=== PATIENT | male | born 1955 | race Caucasian/White ===

== ENCOUNTER 2019-12-26 00:11 | Day surgery (SDC) | payer MEDICARE, SELFPAY ==
[2019-12-06 12:00] VITALS: BP 132/70; PULSE 62; RESP 20; TEMP 36.6; O2SAT 98; BMI 38.2
[2019-12-26] VITALS (13 sets, daily range): BP systolic 127–148; BP diastolic 56–76; PULSE 66–84; RESP 12–21; TEMP 36.4–36.8; O2SAT 93–98
--- NOTE | ~2019-12-26 | XR_ITS ---
EXAMINATION: XR knee LT 2V DATE: 12/26/2019 10:42 INDICATION: Total left knee arthroplasty. Postop. TECHNIQUE: 2 views of left knee were obtained. COMPARISON: None. FINDINGS: There is a total left knee arthroplasty with patellar resurfacing in near-anatomic alignmen t. No fracture. There is gas in the knee joint and soft tissues, consistent with recent surgery. IMPRESSION: 1. Total left knee arthroplasty in near-anatomic alignment. Reviewed, dictated and finalized at location A. 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
[2019-12-26] MEDS: LACTATED RINGERS 1,000 ML 30 ML IV CONT ×2 (06:50→10:13)
--- NOTE | 2019-12-26 06:54 | WPDANESEPPF ---
Anes - Initial Pre Proc Eval Procedure: Operation Date: 12/26/19 07:30 Proposed Procedures p Left Total Knee Arthroplasty - Rai Cummings MD Date/Time: 12/26/19 06:54 Surgeon: Rai Cummings MD Pre Op Diagnosis: OA Left Knee Patient Data Age: 64 Gender: M Height: 5 ft 11 in Weight: 124.2 kg Last Vital Signs Temp 36.6 C 12/06/19 12:00 Pulse 62 12/06/19 12:00 Resp 20 12/06/19 12:00 BP 132/70 12/06/19 12:00 Pulse Ox 98 12/06/19 12:00 Allergies Allergy/AdvReac Type Severity Reaction Status Date / Time No Known Allergies Allergy Verified 12/06/19 12:14 Home Medications Medication Instructions Recorded Confirmed Type cetirizine [Zyrtec] 40 mg PO DAILY 08/30/19 12/06/19 History citalopram 20 mg PO DAILY 08/30/19 12/06/19 History diclofenac sodium 75 mg PO BID 08/30/19 12/06/19 History glimepiride 2 mg PO QAM 08/30/19 12/06/19 History lisinopril 5 mg PO DAILY 08/30/19 12/06/19 History metformin 1,000 mg PO BID 08/30/19 12/06/19 History simvastatin 40 mg PO QPM 08/30/19 12/06/19 History trazodone 100 mg PO HS 08/30/19 12/06/19 History canagliflozin [Invokana] 100 mg PO DAILY 12/06/19 12/06/19 History cannabidiol 100 mg PRN PRN 12/06/19 12/06/19 History hydrocodone-acetaminophen 1 tablet PO BID PRN 12/06/19 12/06/19 History canagliflozin 100 mg tablet 100 mg PO DAILY 12/11/19 History Patient hx anesthesia problems: none Family hx anesthesia problems: none PMFSH Past Medical History Medical History Aortic stenosis Diabetes History of cardiac disorder History of left shoulder fracture Hyperlipidemia Hypertension Osteoarthritis of left knee Sleep apnea Surgical History Surgical History History of arthroscopy of right knee History of carpal tunnel release History of heart artery stent History of nasal surgery History of penile implant History of tonsillectomy History of total right hip arthroplasty History of vasectomy Family History Family History Other Diabetes mellitus Family history of arthritis Family history of congenital heart disease Family history of lung cancer Social History Social History Smoking status: Never smoker Anes - Eval Final PreProcedure Day of Procedure 12/26/19 06:54 Patient weight: obese Heart: regular rate and rhythm and murmur Lungs: clear to auscultation Airway: Mallampati scale class II Neurological: alert and oriented Last oral intake: >/= 8 hours ASA classification: III Emergent: no Anesthetic plan: proceed Anesthesia type and monitoring: general LMA and standard monitoring Informed Consent: The patient's anesthetic plan and its attendant risks and benefits were discussed with the patient/family/POA. Questions were solicited and answers provided to the satisfaction of the patient/family/POA.
[2019-12-26 06:55] LABS: Glucose Point of Care 162 (65-105)
--- NOTE | 2019-12-26 07:49 | WPDHPUPDATE1 ---
History and Physical Update Update Date/Time: 12/26/19 07:49 History and Physical has been reviewed, including an updated exam of the patient. There are NO changes in the patient's condition. Risks, benefits, and alternatives have been discussed and questions answered. Patient agrees to proceed with procedure.
[2019-12-26] MEDS: ceFAZolin 3 GM/D5W 100 ML 100 ML IVPB (07:53)
--- NOTE | 2019-12-26 08:20 | WPDANESPNB ---
Anes - Peripheral Nerve Block Date/Time: 12/26/19 08:20 I have discussed with the patient/family/POA the placement of a peripheral nerve block for post-operative pain management, including associated risks, benefits, complications, and side effects. Alternative methods of post-operative analgesia were detailed. Questions were solicited and answers provided to the satisfaction of the patient/family/POA. Time-Out: A pre-procedural Time-Out was completed immediately before starting the procedure and confirmed: Patient Identification, Site, Procedure, Patient Position and the Availability of Requisite Equipment. Clinical Indications: Acute post-operative pain management requested by the operative surgeon. Nerve Block Insertion Note Anes-nerve block: adductor canal left Patient position: supine Skin prep: chlorhexidine Needle: 22 gauge, stimulating, insulated echogenic needle. Needle length: 80 mm Technique: ultrasound Injectate: bupivacaine 0.5% with epi 5 mcg/ml (30ml) Observations: tolerated well Complications: none Procedure start time:: 740 Procedure end time:: 747
[2019-12-26] MEDS: GENTAMICIN BONE CEMENT REFOBACIN 1 EACH TOPICAL (09:10)
[2019-12-26 10:20] LABS: Glucose Point of Care 198 (65-105)
--- NOTE | 2019-12-26 11:57 | ADMGEN ---
This patient, Emerson Martinez, was admitted to 3 [facility] Surg Room 317-01. Patient/family oriented to hospital policies and general routines including ID bracelet, bed and alarms, visiting hours, pain management, procedures, bathroom and other care routines, personal items, smoking policy, room service/diet, and visiting hours. Valuables list has been completed. Information on how to activate the Rapid Response Team has been discussed. Patient/Family are encouraged to report perceived risks to care and to ask questions if they do not understand what they are told or what they should do.
[2019-12-26 12:19] LABS: Estimated CRCL calculation 98 ml/min; Estimated Glomerular Filt Rate > 60
[2019-12-26] MEDS: TRANEXAMIC ACID 1,000 MG in SODIUM CHLORIDE 0.9% IV 50 ML 360 MG IV PUSH (14:38)
[2019-12-26] MEDS: GLIMEPIRIDE 2 MG TABLET PO (14:39)
[2019-12-26] MEDS: ceFAZolin 2 GM/D5W 50 ML 2 GM/50 ML BAG IVPB (15:50)
[2019-12-26] MEDS: SIMVASTATIN 20 MG TABLET 40 MG PO (18:52)
[2019-12-26] MEDS: CELECOXIB 200 MG CAPSULE PO (18:52)
[2019-12-26] MEDS: metFORMIN HCL 500 MG TABLET 1000 MG PO (18:53)
[2019-12-26] MEDS: DOCUSATE SODIUM 100 MG CAPSULE PO (18:57)
[2019-12-26] MEDS: TRAZODONE HCL 50 MG TABLET 100 MG PO (21:04)
[2019-12-26] MEDS: ASPIRIN 325 MG ENTERIC TABLET PO (21:04)
[2019-12-27 02:00] VITALS: BP 132/56; PULSE 65; RESP 20; TEMP 36.5; O2SAT 97
[2019-12-27 06:24] VITALS: BP 123/60; PULSE 69; RESP 20; TEMP 36.4; O2SAT 100
[2019-12-27 06:32] LABS: Basophils Percent Auto 0.1 % (0.2-1.2); Eosinophils Percent Auto 0.4 % (0-4.4); Hematocrit 29.1 % (42.0-52.0); Hemoglobin 9.6 g/dL (14.0-18.0); Immature Granulocyte Absolute 0.03 K/mm3 (0.00-0.031); Immature Granulocyte Percent A 0.4 % (0-0.5); Lymphocytes Absolute Auto 1.18 K/mm3 (0.9-3.2); Lymphocytes Percent Auto 14.9 % (18.3-44.2); Mean Corpuscular Hemoglobin 29.8 pg (26-34); Mean Corpuscular Volume 90.4 fl (80-100); Monocytes Absolute Auto 0.8 K/mm3 (0.1-0.6); Monocytes Percent Auto 10.2 % (2.6-8.5); Neutrophils Absolute Auto 5.9 K/mm3 (1.3-6.7); Platelet Count Result 139 k/mm3 (150-375); Red Blood Count 3.22 M/mm3 (4.6-6.20); Red Cell Distribution Width 12.5 % (11.5-14.5); White Blood Count 7.9 K/mm3 (4.5-10.0)
[2019-12-27 06:49] LABS: Blood Urea Nitrogen 19 mg/dL (9-20); Calcium 9.6 mg/dL (8.4-10.2); Carbon Dioxide 24 mmol/L (22-30); Chloride 100 mmol/L (98-107); Estimated CRCL calculation 109 ml/min; Estimated Glomerular Filt Rate > 60; Glucose 162 mg/dL (75-110); Potassium 4.2 mmol/L (3.4-5.0); Sodium 132 mmol/L (137-145)
[2019-12-27] MEDS: LORATADINE 10 MG TABLET PO (07:52)
[2019-12-27] MEDS: ASPIRIN 325 MG ENTERIC TABLET PO (07:52)
[2019-12-27] MEDS: metFORMIN HCL 500 MG TABLET 1000 MG PO (07:52)
[2019-12-27] MEDS: CELECOXIB 200 MG CAPSULE PO (07:52)
[2019-12-27] MEDS: CANAGLIFLOZIN 100 MG TABLET PO (07:52)
[2019-12-27] MEDS: DOCUSATE SODIUM 100 MG CAPSULE PO (07:52)
[2019-12-27] MEDS: lisinopriL 5 MG TABLET PO (07:53)
[2019-12-27] MEDS: ceFAZolin 2 GM/D5W 50 ML 2 GM/50 ML BAG IVPB ×2 (07:53)
[2019-12-27] MEDS: CITALOPRAM HYDROBROMIDE 20 MG TABLET PO (07:53)
[2019-12-27] MEDS: GLIMEPIRIDE 2 MG TABLET PO (07:53)
[2019-12-27 08:30] VITALS: BP 121/44; PULSE 76; RESP 18; TEMP 36.9; O2SAT 100
[2019-12-27] MEDS: ONDANSETRON INJ 4 MG/2 ML VIAL IV PUSH (11:24)
[2019-12-27 12:15] VITALS: BP 100/64; PULSE 73; RESP 18; TEMP 37.1; O2SAT 99
[2019-12-27] MEDS: ACETAMINOPHEN 500 MG TABLET 1000 MG PO (12:43)
--- NOTE | 2019-12-27 14:07 | WPDANESPN ---
Anes - Prog Note Post-Op Date/Time: 12/27/19 14:07 Cardiovascular status: normal Respiratory status: normal Airway patency: baseline Mental status: baseline Post-Op hydration status: normal Vital Signs: Last Vital Signs Temp 37.1 C 12/27/19 12:15 Pulse 73 12/27/19 12:15 Resp 18 12/27/19 12:15 BP 100/64 12/27/19 12:15 Pulse Ox 99 12/27/19 12:15 I/O: Intake & Output 12/26/19 12/27/19 12/27/19 23:59 07:59 15:59 Intake Total 1170 850 410 Output Total 1150 1400 Balance 20 -550 410 Laboratory Tests 12/27/19 05:57 12/27/19 05:57 12/27/19 12/27/19 05:57 05:57 WBC 7.9 RBC 3.22 L Hgb 9.6 L Hct 29.1 L MCV 90.4 MCH 29.8 MCHC 33.0 RDW 12.5 Plt Count 139 L MPV 10.0 Immature Gran % (Auto) 0.4 Neut % (Auto) 74.0 H Lymph % (Auto) 14.9 L Gilliam % (Auto) 10.2 H Eos % (Auto) 0.4 Baso % (Auto) 0.1 L Lymph # (Auto) 1.18 Gilliam # (Auto) 0.8 H Eos # (Auto) 0.0 Baso # (Auto) 0.0 Abs Immat Gran (auto) 0.03 Absolute Neuts (auto) 5.9 Absolute Nucleated RBC 0.0 Nucleated RBC % 0.0 Sodium 132 L Potassium 4.2 Chloride 100 Carbon Dioxide 24 BUN 19 Creatinine 0.80 Estim Creat Clear Calc 109 Estimated GFR > 60 Glucose 162 H Calcium 9.6 Post-procedural complaints: none Patient Feedback: Patient satisfied with anesthetic care.
--- NOTE | 2020-01-25 12:19 | P.OP_ITS ---
Procedure Note - Detailed Date of procedure: 12/26/19 Pre-op diagnosis: OA Left Knee Post-op diagnosis: same Procedure performed: Total knee arthroplasty, left Implants: [place] Triathlon size 6 press-fit femur, size cemented low-profile tibia, 11 mm PS polyethylene insert, 40 mm asymmetric all poly patellar component. Anesthesia: GETA and regional (subsartorial nerve block) Surgeon: Rai Cummings MD Estimated blood loss (mL): 50 Drains: No Complications: None Condition: stable Findings: OPERATIVE DETAILS: The patient was given a nerve block preoperatively, and then brought to the operating room. A general anesthetic was administered. The leg was prepped and draped in the usual sterile fashion. The limb was elevated and the tourniquet inflated to 300 mmHg during initial exposure. A longitudinal incision was created along the medial border of the patella and patellar tendon, and a minimally invasive optimized mid-vastus approach to the knee was performed. A large medial release was taken. The knee was then flexed. The osteophytes were carefully removed. The intramedullary guide was placed in the femoral canal. The distal femoral resection was then taken with the oscillating saw. The collateral ligaments were carefully protected. The tibia was carefully exposed. The jig was applied, and the proximal tibia was resected according to preoperative plan. The knee was balanced in extension. Appropriate releases were taken where needed. The anterior cruciate ligament and meniscal remnants were removed. The posterior cruciate ligament was preserved. The patella was measured. Patellar resection was carried out with the oscillating saw. The lug holes drilled. The femur was sized and rotation assessed using a combination of gap balancing, posterior referencing, and the AP axis. The 4 in 1 cutting block was used to finish the femoral cuts after equal gaps were assured. The box cut was taken and the lug holes were drilled. The osteophytes were carefully removed from the back of the knee. The knee was copiously irrigated with antibiotic solution periodically throughout the procedure. The meniscal remnants were removed. The spacer block was used to confirm equal flexion and extension gaps. Further releases were performed as needed. The tibia was sized and broached. The bony surfaces were prepared for cementing with pulsatile lavage. The real tibial component was cemented into position followed by press fitting the femoral component. Excess cement was carefully removed. The patella component was cemented. Patellar tracking was carefully assessed. No additional releases were required. The wound was closed with #1 Vycril suture, #2 Quill suture, 0-Quill suture, and 2-0 Quill suture followed by Steri-Strips. A sterile bulky dressing was applied. Meticulous hemostasis was maintained throughout the procedure. The Pulmatrixamantis device was used. There were no complications. The patient was extubated and brought to the recovery room in stable condition after the application of sterile dressing with Abdiel bandage.
--- NOTE | 2020-01-25 12:23 | PM.DS ---
DS: Diagnosis Admitting Diagnosis Admitting Diagnosis: Unilateral primary osteoarthritis, left knee Discharge Diagnosis (1) Presence of left artificial knee joint: Code(s): Z96.652 - Presence of left artificial knee joint Status: Acute DS: Summary Hospital Course Reason for hospitalization: Total knee arthroplasty. Hospital Course: Tolerated surgery well. Progressed appropriately with therapy. Status at Discharge Functional status at discharge: uses cane/walker Time Spent with Patient Time attestation: Total time spent providing and/or coordinating discharge services: Exam Const: General: no acute distress Resp: Effort & Inspection: normal respiratory effort Skin: Other: Wound healing well. Mepilex dressing intact. No hematoma or drainage. Neuro: Motor exam (neuro): 5/5 motor strength present throughout Sensory Exam: normal sensation Psych: Mental Status: mental status grossly normal Speech and movement: Normal speech and movement present Discharge Plan Discharge Patient Disposition: Home, Self-Care Discharge Instructions: See instruction sheet. Patient Instructions: Pain Management (DC), Knee Replacement (DC) Follow-up/Referrals: Rai Cummings MD [Physician] - Discharge Medications: Continued Invokana 100 mg tablet 100 mg PO DAILY RF: 0 cetirizine [Zyrtec] 10 mg Tablet 40 mg PO DAILY RF: 0 simvastatin 40 mg Tablet 40 mg PO QPM RF: 0 glimepiride 2 mg Tablet 2 mg PO QAM RF: 0 citalopram 20 mg Tablet 20 mg PO DAILY RF: 0 trazodone 100 mg Tablet 100 mg PO HS RF: 0 metformin 1,000 mg Tablet 1,000 mg PO BID RF: 0 diclofenac sodium 75 mg Tablet,Delayed Release (Dr/Ec) 75 mg PO BID RF: 0 lisinopril 5 mg Tablet 5 mg PO DAILY RF: 0 Discontinued hydrocodone-acetaminophen 5-325 mg Tablet 1 tablet PO BID PRN (Reason: PAIN) RF: 0 No Action oxycodone-acetaminophen 5-325 mg tablet 1 - 2 tablet PO Q4-6H MDD 8 tablets PRN (Reason: pain) Qty: 40 RF: 0 Discharge Date/Time: 12/27/19 16:05 Quality VTE Prophylaxis VTE prophylaxis: mechanical ordered (GIAN hose and SCDs)
== END 2019-12-27 16:05 | disposition home or self-care (01) ==
LOC: ANHSURGERY 07:43 → ANH3MEDSUR 11:40
PROVIDERS: PCP Family Medicine; Visit Provider Orthopaedic Surgery
PROC: (CPT 27447; principal; 2019-12-26 07:30)
DX: M17.12 Unilateral primary osteoarthritis, left knee (principal); G89.18 Other acute postprocedural pain; I10 Essential (primary) hypertension; E11.9 Type 2 diabetes mellitus without complications; E78.5 Hyperlipidemia, unspecified; G47.30 Sleep apnea, unspecified; I35.0 Nonrheumatic aortic (valve) stenosis; Z79.84 Long term (current) use of oral hypoglycemic drugs; E66.9 Obesity, unspecified; Z68.39 Body mass index [BMI] 39.0-39.9, adult
CPT/HCPCS: 27447; 64447; 36415; 73560; 80048; 82565; 85025; 86850; 86900; 86901; 87081; 97110; 97116; 97161; 97165; 97530; A9270; C1713; C1776; J0131; J0171; J0690; J1100; J1170; J1885; J2250; J2270; J2370; J2405; J2704; J2795; J3010; J7120

== ENCOUNTER 2020-09-05 07:58 | Outpatient (CLI) | payer MEDICARE, SELFPAY ==
--- NOTE | 2020-09-05 | ECG_ITS ---
Measurements Intervals [place] Rate: 62 P: -12 NV: 176 QRS: 32 QRSD: 116 T: 33 QT: 379 QTc: 387 Interpretive Statements SINUS RHYTHM INTRAVENTRICULAR CONDUCTION DELAY BASELINE ARTIFACT- I, II, III, AVF, V1 BORDERLINE ECG Electronically Signed On 09-05-2020 9:10:37 CDT by Dung Medina D.O.
[2020-09-05 08:44] LABS: Hematocrit 35.8 % (42.0-52.0); Hemoglobin 12.1 g/dL (14.0-18.0)
[2020-09-05 09:02] LABS: Albumin Level 4.3 g/dL (3.5-5.1); Estimated Glomerular Filt Rate > 60; Glucose 164 mg/dL (75-110)
[2020-09-05 09:23] LABS: Hemoglobin A1C 6.1 % (<5.7)
[2020-09-05 09:35] LABS: Urine Cotinine NEGATIVE
== END 2020-09-05 07:59 | disposition home or self-care (01) ==
PROVIDERS: PCP Family Medicine; Visit Provider Orthopaedic Surgery
DX: Z01.818 Encounter for other preprocedural examination (principal); M17.11 Unilateral primary osteoarthritis, right knee; E11.9 Type 2 diabetes mellitus without complications; E78.2 Mixed hyperlipidemia; I10 Essential (primary) hypertension; I51.89 Other ill-defined heart diseases
CPT/HCPCS: 80307; 82040; 82565; 82947; 83036; 85014; 85018; 93005

== ENCOUNTER 2020-09-11 11:25 | Outpatient (CLI) | payer MEDICARE, SELFPAY ==
[2020-09-11 12:26] LABS: Basophils Percent Auto 0.5 % (0.2-1.2); Eosinophils Absolute Auto 0.1 K/mm3 (0-0.3); Eosinophils Percent Auto 1.5 % (0-4.4); Hemoglobin 12.5 g/dL (14.0-18.0); Immature Granulocyte Absolute 0.03 K/mm3 (0.00-0.031); Immature Granulocyte Percent A 0.5 % (0-0.5); Lymphocytes Absolute Auto 1.07 K/mm3 (0.9-3.2); Lymphocytes Percent Auto 17.8 % (18.3-44.2); Mean Corpuscular HGB Conc 34.7 g/dl (32-36); Mean Corpuscular Volume 86.5 fl (80-100); Mean Platelet Volume 9.8 fl (7.4-10.4); Monocytes Absolute Auto 0.5 K/mm3 (0.1-0.6); Neutrophils Absolute Auto 4.3 K/mm3 (1.3-6.7); Neutrophils Percent Auto 71.7 % (45.5-73.1); Platelet Count Result 179 k/mm3 (150-375); Red Blood Count 4.16 M/mm3 (4.6-6.20); Red Cell Distribution Width 12.5 % (11.5-14.5)
[2020-09-11 12:42] LABS: Anion Gap 11 mmol/L (8-16); Blood Urea Nitrogen 31 mg/dL (9-20); Calcium 10.6 mg/dL (8.4-10.2); Carbon Dioxide 26 mmol/L (22-30); Chloride 101 mmol/L (98-107); Estimated Glomerular Filt Rate > 60; Glucose 138 mg/dL (75-110); Potassium 5.1 mmol/L (3.4-5.0); Sodium 138 mmol/L (137-145)
== END 2020-09-11 11:26 | disposition home or self-care (01) ==
LOC: ANHSURGERY 11:28
PROVIDERS: Anesthesiology; PCP Family Medicine; Visit Provider Orthopaedic Surgery
DX: M17.11 Unilateral primary osteoarthritis, right knee (principal); E11.9 Type 2 diabetes mellitus without complications
CPT/HCPCS: 36415; 80048; 85025; 87081

== ENCOUNTER 2020-12-23 13:26 | Outpatient (CLI) | payer MEDICARE, SELFPAY ==
[2020-12-23 14:35] LABS: Basophils Percent Auto 0.6 % (0.2-1.2); Eosinophils Absolute Auto 0.1 K/mm3 (0-0.3); Eosinophils Percent Auto 1.9 % (0-4.4); Hematocrit 37.3 % (42.0-52.0); Immature Granulocyte Absolute 0.02 K/mm3 (0.00-0.031); Immature Granulocyte Percent A 0.4 % (0-0.5); Lymphocytes Absolute Auto 1.08 K/mm3 (0.9-3.2); Mean Corpuscular HGB Conc 34.9 g/dl (32-36); Mean Corpuscular Hemoglobin 30.4 pg (26-34); Mean Corpuscular Volume 87.4 fl (80-100); Mean Platelet Volume 9.6 fl (7.4-10.4); Monocytes Absolute Auto 0.4 K/mm3 (0.1-0.6); Neutrophils Absolute Auto 3.5 K/mm3 (1.3-6.7); Neutrophils Percent Auto 68.1 % (45.5-73.1); Platelet Count Result 155 k/mm3 (150-375); Red Blood Count 4.27 M/mm3 (4.6-6.20); Red Cell Distribution Width 12.5 % (11.5-14.5); White Blood Count 5.1 K/mm3 (4.5-10.0)
[2020-12-23 14:43] LABS: Urine Cotinine NEGATIVE
[2020-12-23 14:44] LABS: Hemoglobin A1C 7.4 % (<5.7)
[2020-12-23 14:53] LABS: Albumin Level 4.3 g/dL (3.5-5.1); Anion Gap 8 mmol/L (8-16); Blood Urea Nitrogen 26 mg/dL (9-20); Calcium 10.2 mg/dL (8.4-10.2); Carbon Dioxide 25 mmol/L (22-30); Chloride 102 mmol/L (98-107); Estimated Glomerular Filt Rate > 60; Glucose 87 mg/dL (75-110); Potassium 4.6 mmol/L (3.4-5.0); Sodium 135 mmol/L (137-145)
== END 2020-12-23 13:27 | disposition home or self-care (01) ==
LOC: ANHSURGERY 13:31
PROVIDERS: PCP Family Medicine; Visit Provider Orthopaedic Surgery
DX: Z01.818 Encounter for other preprocedural examination (principal); M17.11 Unilateral primary osteoarthritis, right knee; E11.9 Type 2 diabetes mellitus without complications
CPT/HCPCS: 80048; 80307; 82040; 83036; 85025; 86850; 86900; 86901; 87081

== ENCOUNTER 2020-12-30 00:27 | Outpatient (CLI) | payer MEDICARE, SELFPAY ==
[2020-12-30 17:34] LABS: SARS-CoV-2 RNA PCR Negative
== END 2020-12-30 00:28 | disposition home or self-care (01) ==
LOC: ANHCOVIDDT 00:27
PROVIDERS: PCP Family Medicine; Visit Provider Orthopaedic Surgery
DX: Z01.812 Encounter for preprocedural laboratory examination (principal); Z20.822 Contact with and (suspected) exposure to COVID-19
CPT/HCPCS: C9803; U0003; U0005

== ENCOUNTER 2021-01-02 01:00 | Day surgery (SDC) | payer MEDICARE, SELFPAY ==
[2020-09-11 11:48] VITALS: BP 142/74; PULSE 70; RESP 20; TEMP 36.7; O2SAT 97; BMI 36.1
[2020-12-23 13:37] VITALS: BMI 38.0
[2020-12-23 14:12] VITALS: BP 117/59; PULSE 68; RESP 16; TEMP 36.7; O2SAT 97; BMI 38.0
[2021-01-02] VITALS (14 sets, daily range): BP systolic 114–168; BP diastolic 59–80; PULSE 67–101; RESP 10–19; TEMP 36.5–37.4; O2SAT 91–98
--- NOTE | ~2021-01-02 | XR_ITS ---
EXAMINATION: XR knee RT 2V EXAM DATE: 01/02/2021 10:35 INDICATION: Right knee arthroplasty. TECHNIQUE: Portable frontal, crosstable lateral projections right knee obtained immediately followin g arthroplasty. Procedure performed by Rai Cummings MD. FINDINGS: Patient is status post total knee arthroplasty. The orthopedic hardware is in expected po sition. There is small amount of subcutaneous gas, gas within the knee joint space. Overlying soft tissue swelling. Correlate with procedure note. IMPRESSION: Status post total right knee arthroplasty. Reviewed, dictated and finalized at location B. D ENGINEER
[2021-01-02] MEDS: ACETAMINOPHEN 500 MG TABLET 1000 MG PO (06:31)
[2021-01-02] MEDS: LACTATED RINGERS 1,000 ML 30 ML IV CONT ×2 (06:38→10:22)
[2021-01-02 06:46] LABS: Glucose Point of Care 192 (65-105)
[2021-01-02] MEDS: TRANEXAMIC ACID 1,000MG/ISO100 1,000 MG/100 ML BAG 200 MG IVPB (06:59)
--- NOTE | 2021-01-02 07:11 | SUR.PREOP ---
Up to bathroom.
--- NOTE | 2021-01-02 07:20 | WPDHPUPDATE1 ---
History and Physical Update Update Date/Time: 01/02/21 07:20 History and Physical has been reviewed, including an updated exam of the patient. There are NO changes in the patient's condition. Risks, benefits, and alternatives have been discussed and questions answered. Patient agrees to proceed with procedure.
--- NOTE | 2021-01-02 07:22 | WPDANESEPP ---
Anes - Eval Pre Procedure Procedure: Operation Date: 01/02/21 07:30 Proposed Procedures p Right Total Knee Arthroplasty - Rai Cummings MD Date/Time: 01/02/21 07:22 Surgeon: randal Pre Op Diagnosis: Right Knee OA Patient Data Age: 65 Gender: M Height: 5 ft 11 in Weight: 123.9 kg Last Vital Signs Temp 99.1 F 01/02/21 07:02 Pulse 68 01/02/21 07:02 Resp 16 01/02/21 07:02 BP 145/70 H 01/02/21 07:02 Pulse Ox 97 01/02/21 07:02 Allergies Allergy/AdvReac Type Severity Reaction Status Date / Time No Known Allergies Allergy Verified 01/02/21 06:05 Home Medications Medication Instructions Recorded Confirmed Type cetirizine [Zyrtec] 20 mg PO DAILY 08/30/19 01/02/21 History citalopram 20 mg PO QAM 08/30/19 01/02/21 History diclofenac sodium 75 mg PO BID 08/30/19 01/02/21 History glimepiride 2 mg PO QAM 08/30/19 01/02/21 History lisinopril 5 mg PO DAILY 08/30/19 01/02/21 History metformin 1,000 mg PO BID 08/30/19 01/02/21 History trazodone 100 mg PO HS 08/30/19 01/02/21 History canagliflozin 100 mg tablet 100 mg PO QAM 12/11/19 01/02/21 History atorvastatin 40 mg PO HS 09/11/20 01/02/21 History oxycodone-acetaminophen 1 tablet PO Q4-6H PRN 12/23/20 01/02/21 History tamsulosin 0.4 mg PO HS 12/23/20 01/02/21 History Laboratory Tests 01/02/21 06:44 POC Capillary Glucose 192 mg/dl H mg/dl (65-105) Patient hx anesthesia problems: none Family hx anesthesia problems: none PMFSH Past Medical History Medical History Aftercare following surgery Aortic stenosis Diabetes History of cardiac disorder History of left shoulder fracture Hyperlipidemia Hypertension Osteoarthritis of left knee Osteoarthritis of right knee Sleep apnea Surgical History Surgical History History of arthroscopy of right knee History of carpal tunnel release History of heart artery stent History of nasal surgery History of penile implant History of tonsillectomy History of total right hip arthroplasty History of vasectomy Presence of left artificial knee joint Family History Family History Other Diabetes mellitus Family history of arthritis Family history of congenital heart disease Family history of lung cancer Social History Social History Smoking status: Never smoker Additional smoking assessment comments: DENIES ANY FORM OF TOBACCO USE Alcohol use details: PT STATES MAYBE 1 -2 DRINKS/YEAR Other substance usage details: CBD CREAM BILATERAL KNEES Living arrangements: with family Spiritual care concerns: No Exam Day of Procedure 01/02/21 07:22 Patient weight: morbidly obese Heart: regular rate and rhythm Lungs: clear to auscultation Airway: Mallampati scale Neurological: alert and oriented
[2021-01-02] MEDS: ceFAZolin 3 GM/D5W 100 ML 100 ML IVPB (07:36)
--- NOTE | 2021-01-02 07:38 | WPDANESEFPP ---
Anes - Eval Final PreProcedure Day of Procedure 01/02/21 07:38 Patient weight: obese Heart: regular rate and rhythm Lungs: clear to auscultation and normal air movement Airway: Mallampati scale class II Neurological: alert and oriented Last oral intake: >/= 8 hours ASA classification: III Emergent: no Anesthetic plan: proceed Anesthesia type and monitoring: general LMA and ETT Informed Consent: The patient's anesthetic plan and its attendant risks and benefits were discussed with the patient/family/POA. Questions were solicited and answers provided to the satisfaction of the patient/family/POA.
--- NOTE | 2021-01-02 07:38 | WPDANESPNB ---
Anes - Peripheral Nerve Block Date/Time: 01/02/21 07:38 I have discussed with the patient/family/POA the placement of a peripheral nerve block for post-operative pain management, including associated risks, benefits, complications, and side effects. Alternative methods of post-operative analgesia were detailed. Questions were solicited and answers provided to the satisfaction of the patient/family/POA. Time-Out: A pre-procedural Time-Out was completed immediately before starting the procedure and confirmed: Patient Identification, Site, Procedure, Patient Position and the Availability of Requisite Equipment. Clinical Indications: Acute post-operative pain management requested by the operative surgeon. Nerve Block Insertion Note Anes-nerve block: adductor canal right Patient position: supine Skin prep: chlorhexidine Needle: 22 gauge, stimulating, insulated echogenic needle. Needle length: 80 mm Technique: ultrasound Technique comment: in plane Injectate: bupivacaine 0.5% with epi 5 mcg/ml (30cc) Observations: tolerated well Complications: none Procedure start time:: 730 Procedure end time:: 735
[2021-01-02] MEDS: GENTAMICIN BONE CEMENT REFOBACIN 1 EACH TOPICAL (08:18)
[2021-01-02 10:46] LABS: Glucose Point of Care 259 (65-105)
--- NOTE | 2021-01-02 11:16 | SUR.PHASEI ---
RN called Dr. Cummings's office for orders so patient can transfer to the floor.
--- NOTE | 2021-01-02 11:25 | P.OP_ITS ---
Procedure Note - Detailed Date of procedure: 01/02/21 Pre-op diagnosis: Right Knee OA Post-op diagnosis: same Procedure performed: Total knee arthroplasty, right Description of procedure: Preoperatively the knee had a moderate contracture of 10? flexion contracture and flexion limited to 100?. Mild varus deformity. Bone quality was excellent. Slight lateral patellar release performed due to lateral retinacular contracture and tightness. Femur placed at 3? which matched the AP axis. 9 mm distal femoral resection. 5? valgus. Posterior stabilized knee due to contracture and patient requirements for work. Moderate medial release. Implants: [place] Triath[employer] size 6 press-fit femur, size 6 cemented low-profile tibia, 11 mm posterior stabilized polyethylene insert, 38 mm asymmetric all poly cemented patellar component. Anesthesia: GETA and regional (subsartorial nerve block) Surgeon: Rai Cummings MD Crm Technical Lead: Hortensia Valdes PA-C Estimated blood loss (mL): 200 Drains: No Complications: None Condition: stable Disposition: PACU Findings: OPERATIVE DETAILS: The patient was given a nerve block preoperativel y, and then brought to the operating room. A general anesthetic was administered. The leg was prepped and draped in the usual sterile fashion. The limb was elevated and the tourniquet inflated to 300 mmHg during initial exposure, and cementation. A longitudinal incision was created along the medial border of the patella and patellar tendon, and a minimally invasive optimized mid-vastus approach to the knee was performed. A moderarte medial release was taken. The knee was then flexed. The osteophytes were carefully removed. The intramedullary guide was placed in the femoral canal. The distal femoral resection was then taken with the oscillating saw. The collateral ligaments were carefully protected. The tibia was carefully exposed. The jig was applied, and the proximal tibia was resected according to preoperative plan. The knee was balanced in extension. Appropriate releases were taken where needed. The anterior, and posterior cruciate ligament and meniscal remnants were removed . The patella was measured. Patellar resection was carried out with the oscillating saw. The lug holes drilled. The femur was sized and rotation assessed using a combination of gap balancing, posterior referencing, and the AP axis. The 4 in 1 cutting block and box cut jigs were used to finish the femoral cuts after equal gaps were assured. The lug holes were drilled. The osteophytes were carefully removed from the back of the knee. The posterior capsule was released as well to improve the flexion contracture. The knee was copiously irrigated with antibiotic solution periodically throughout the procedure. The meniscal remnants were removed. The spacer block was used to confirm equal flexion and extension gaps. Further releases were performed as needed. The tibia was sized and broached. The bony surfaces were prepared for cementing with pulsatile lavage. The real tibial component was cemented into position followed by press fitting the femoral component. Excess cement was carefully removed. The patella component was cemented. Patellar tracking was carefully assessed. No additional releases were required. The wound was closed with #1 Vycril suture, #2 Quill suture, 0-Quill suture, and 2-0 Quill suture followed by Steri-Strips. A sterile bulky dressing was applied. Meticulous hemostasis was maintained throughout the procedure. There were no complications. The patient was extubated and brought to the recovery room in stable condition after the application of sterile dressing with Abdiel bandage.
[2021-01-02] MEDS: oxyCODONE HCL (*CRX) 5 MG TAB IR 10 MG PO (13:31)
--- NOTE | 2021-01-02 13:50 | WPDCN ---
Assessment and Plan Additional Plan The hospitalist service has been consulted for management of the patient's medical conditions. Patient reports a recent hemoglobin A1c of just under 7%. At this time his diabetes medications have been resumed. Check hemoglobin A1c in a.m.. Initiate sliding scale insulin, Accu-Cheks, and hypoglycemic protocol. His blood pressures were reviewed and have been running a bit high postoperatively, likely due to pain. Will resume his antihypertensives and monitor closely. Home medications have been reconciled per the primary service. Thank you for allowing us to participate in this patient's care. Please do not hesitate to contact us with any questions. We will follow with you. Supervising physician for this medical consultation is Dr. Ulises Infante. HPI Data of Consult Date/Time: 01/02/21 13:50 Requesting Physician: Rai Cummings MD Primary Care Provider: James Gill MD Consult Narrative Narrative: This is a 65-year-old male with right knee osteoarthritis status post right total knee arthroplasty whom the hospitalist service has been consulted for management of his medical conditions postoperatively. His medical history is significant for osteoarthritis, type 2 diabetes mellitus, hypertension, hyperlipidemia, benign prostatic hyperplasia, aortic stenosis, and untreated sleep apnea. He has had longstanding pain in his right knee not amenable to conservative outpatient treatment and thus he elected for replacement today. His surgery was performed under general anesthesia with regional block; no immediate complications were documented and an estimated blood loss was 200 mL. Postoperatively he did have some nausea however felt much better after eating and had no episodes of emesis. At the time my evaluation he has just finished up with physical therapy and is doing quite well per their report. He has minimal pain, rating his discomfort 2/10 at this time. He denies postoperative fever, chills, sweats, vomiting, chest pain, and shortness of breath. No paresthesias, skin color, or temperature changes distal to the surgical site. Review of Systems Review of Systems: Narrative: Twelve systems were reviewed with pertinent positives and negatives as per HPI. No fever, chills, or sweats. No recent cold or flu symptoms. Most recent hemoglobin A1c was just under 7%. No blurry vision, polydipsia, or polyuria. He does have sleep apnea but is not using a CPAP. He is followed by Dr. Carl for mild aortic stenosis, of which he is asymptomatic. No history of venous thromboembolism. Except as documented, all other systems were reviewed and are negative. [facility] Past Medical History Medical History (Updated 01/02/21 @ 20:28 by Tiffany Lindo PA-C) Aortic stenosis History of left shoulder fracture Hyperlipidemia Hypertension Obstructive sleep apnea Osteoarthritis of left knee Osteoarthritis of right knee Type 2 diabetes mellitus Surgical History Surgical History (Updated 01/02/21 @ 20:28 by Tiffany Lindo PA-C) History of arthroplasty of left knee History of arthroscopy of right knee (~01/02/21) History of cardiac catheterization Reports clear coronary arteries. History of carpal tunnel release History of nasal surgery History of penile implant History of tonsillectomy History of total right hip arthroplasty History of vasectomy Family History Family History Other Diabetes mellitus Family history of arthritis Family history of congenital heart disease Family history of lung cancer Social History Social History (Updated 01/02/21 @ 20:28 by Tiffany Lindo PA-C) Social History: Surrogate decision maker: Afshan, . Code status: Full code. Smoking status: Never smoker Alcohol intake: never Alcohol use details: Rare alcohol use, perhaps 1 to 2 drinks a year. Substance use: never Living
--- NOTE | 2021-01-02 15:53 | ADMGEN ---
This patient, Emerson Martinez, was admitted to Medical Room 247-. Patient/family oriented to hospital policies and general routines including ID bracelet, bed and alarms, visiting hours, pain management, procedures, bathroom and other care routines, personal items, smoking policy, room service/diet, and visiting hours. Information on how to activate the Rapid Response Team has been discussed. Patient/Family are encouraged to report perceived risks to care and to ask questions if they do not understand what they are told or what they should do.
[2021-01-02] MEDS: metFORMIN HCL 500 MG TABLET 1000 MG PO (16:53)
[2021-01-02] MEDS: DOCUSATE SODIUM 100 MG CAPSULE PO (16:53)
[2021-01-02] MEDS: INSULIN ASPART (*BKC) 100 UNITS/ML SUB-Q (16:54)
[2021-01-02] MEDS: MELOXICAM 7.5 MG TABLET PO (16:54)
[2021-01-02] MEDS: oxyCODONE HCL (*CRX) 5 MG TAB IR PO (16:54)
[2021-01-02 16:56] LABS: Glucose Point of Care 255 (65-105)
[2021-01-02] MEDS: ATORVASTATIN 40 MG TABLET PO (20:30)
[2021-01-02] MEDS: SENNOSIDES 8.6 MG TABLET 17.2 MG PO (20:31)
[2021-01-02] MEDS: traZODone HCL 50 MG TABLET 100 MG PO (20:31)
[2021-01-02] MEDS: TAMSULOSIN HCL 0.4 MG CAPSULE PO (20:31)
[2021-01-02 22:22] LABS: Glucose Point of Care 232 (65-105)
[2021-01-03 02:00] VITALS: BP 117/50; PULSE 70; RESP 18; TEMP 36.6; O2SAT 97
[2021-01-03 05:14] VITALS: BP 113/41; PULSE 73; RESP 16; TEMP 36.7; O2SAT 97
[2021-01-03] MEDS: oxyCODONE HCL (*CRX) 5 MG TAB IR PO ×2 (05:42→10:22)
[2021-01-03] MEDS: CYCLOBENZAPRINE HCL 10 MG TABLET PO (05:42)
[2021-01-03 05:49] LABS: Alanine Aminotransferase 19 U/L (4-50); Albumin Level 3.5 g/dL (3.5-5.1); Alkaline Phosphatase 69 U/L (38-126); Anion Gap 2 mmol/L (8-16); Aspartate Amino Transferase 22 U/L (17-59); Blood Urea Nitrogen 19 mg/dL (9-20); Calcium 9.5 mg/dL (8.4-10.2); Carbon Dioxide 27 mmol/L (22-30); Chloride 104 mmol/L (98-107); Estimated CRCL calculation 106 ml/min; Estimated Glomerular Filt Rate > 60; Glucose 184 mg/dL (75-110); Potassium 4.1 mmol/L (3.4-5.0); Sodium 133 mmol/L (137-145)
[2021-01-03 05:56] LABS: Hemoglobin A1C 7.3 % (<5.7)
[2021-01-03 06:36] LABS: Basophils Percent Auto 0.2 % (0.2-1.2); Eosinophils Percent Auto 0.2 % (0-4.4); Hemoglobin 9.8 g/dL (14.0-18.0); Immature Granulocyte Absolute 0.02 K/mm3 (0.00-0.031); Immature Granulocyte Percent A 0.2 % (0-0.5); Lymphocytes Absolute Auto 0.61 K/mm3 (0.9-3.2); Mean Corpuscular HGB Conc 33.8 g/dl (32-36); Mean Corpuscular Hemoglobin 29.6 pg (26-34); Mean Corpuscular Volume 87.6 fl (80-100); Mean Platelet Volume 9.8 fl (7.4-10.4); Monocytes Absolute Auto 0.9 K/mm3 (0.1-0.6); Monocytes Percent Auto 10.2 % (2.6-8.5); Neutrophils Absolute Auto 7.2 K/mm3 (1.3-6.7); Neutrophils Percent Auto 82.2 % (45.5-73.1); Platelet Count Result 129 k/mm3 (150-375); Red Blood Count 3.31 M/mm3 (4.6-6.20); Red Cell Distribution Width 12.4 % (11.5-14.5); White Blood Count 8.8 K/mm3 (4.5-10.0)
[2021-01-03] MEDS: CANAGLIFLOZIN 100 MG TABLET PO (07:30)
[2021-01-03 07:34] LABS: Glucose Point of Care 206 (65-105)
[2021-01-03] MEDS: LORATADINE 10 MG TABLET 20 MG PO (08:21)
[2021-01-03] MEDS: GLIMEPIRIDE 2 MG TABLET PO (08:21)
[2021-01-03] MEDS: lisinopriL 5 MG TABLET PO (08:21)
[2021-01-03] MEDS: MELOXICAM 7.5 MG TABLET PO (08:21)
[2021-01-03] MEDS: metFORMIN HCL 500 MG TABLET 1000 MG PO (08:22)
[2021-01-03] MEDS: DOCUSATE SODIUM 100 MG CAPSULE PO (08:22)
[2021-01-03] MEDS: CITALOPRAM HYDROBROMIDE 20 MG TABLET PO (08:22)
[2021-01-03 10:00] VITALS: BP 146/68; PULSE 77; RESP 16; TEMP 36.9; O2SAT 97
--- NOTE | 2021-01-03 11:09 | PM.IMPN ---
Progress Note: A&P Assessment and Plan (1) Type 2 diabetes mellitus: Code(s): E11.9 - Type 2 diabetes mellitus without complications Status: Inactive Assessment and Plan: Last glucose 206 -A1c 7.3 -continue Invokana and Amaryl (2) Status post right knee replacement: Code(s): Z96.651 - Presence of right artificial knee joint Status: Acute Assessment and Plan: Patient is doing well and plans to work with physical therapy later today to try steps -hemoglobin with a slight drop but no evidence of hematoma or bleeding on exam. Recheck H&H at noon but I suspect no bleeding -okay to discharge from a medical standpoint (3) Aftercare following surgery: Code(s): Z48.89 - Encounter for other specified surgical aftercare Status: Acute Assessment and Plan: Patient is doing well, please contact the hospitalist for any further issues (4) Hypertension: Code(s): I10 - Essential (primary) hypertension Status: Acute Assessment and Plan: Last blood pressure 146/68 -continue lisinopril Time Spent With Patient Time with patient: 25 - 35 minutes Subjective Date/time seen: 01/03/21 11:09 Interval history: Pt is a 65-year-old male here for elective right knee arthroplasty.. He is having 5/10 pain in the knee currently but it was worse when he did physical therapy. He is also apprised of the amount of pain he has been having compared to his last later placed last year but overall doing okay. He is eating and drinking without issue. He denies lightheadedness, dizziness, nausea, vomiting, fevers, chills, abdominal pain, chest pain or shortness of breath at this time. He has a systolic murmur that he says he has had workup for in the past with no issues. Review of Systems Review of Systems: All systems reviewed & are unremarkable except as noted in HPI and below Exam Narrative: Exam Narrative: General: Well developed well nourished patient in NAD HEENT: normocephalic Neck: supple Neuro: Alert and oriented x4 CV:RRR with systolic murmur best heard on the right intercostal space 3/6 Resp:CTA Abd: Soft, non distended. No pain to palpation. Positive bowel sounds Extremities: Right knee with bandage and no excessive erythema, bleeding or discharge. Patient's sensation and pulses intact bilaterally Objective Data Vital Signs Vital Signs: Vital Signs - 24 hr 01/02/21 11:20 01/02/21 11:35 01/02/21 11:50 Temperature Pulse Rate 70 73 71 Respiratory Rate 19 16 12 Blood Pressure 154/76 H 160/79 H Pulse Oximetry 91 92 91 01/02/21 12:15 01/02/21 12:30 01/02/21 13:00 Temperature 97.7 F 97.8 F 97.7 F Pulse Rate 68 68 67 Respiratory Rate 14 14 14 Blood Pressure 168/70 H 155/71 H 156/71 H Pulse Oximetry 95 95 97 01/02/21 14:06 01/02/21 18:00 01/02/21 22:00 Temperature 98 F 98.1 F 98.5 F Pulse Rate 101 H 71 69 Respiratory Rate 16 16 16 Blood Pressure 126/80 127/59 L 114/62 Pulse Oximetry 98 97 97 01/03/21 02:00 01/03/21 05:14 01/03/21 10:00 Temperature 97.8 F 98.1 F 98.5 F Pulse Rate 70 73 77 Respiratory Rate 18 16 16 Blood Pressure 117/50 L 113/41 L 146/68 H Pulse Oximetry 97 97 97 Intake/Output Intake/Output: Intake & Output 12/31/20 01/01/21 01/02/21 01/03/21 23:59 23:59 23:59 23:59 Intake Total 2030 1180 Output Total 675 800 Balance 1355 380 Meds/Results Medications: Active Medications Generic Name Dose Route Start Last Admin Trade Name Freq PRN Reason Stop Dose Admin Atorvastatin Calcium 40 mg 01/02/21 21:00 01/02/21 20:30 Atorvastatin 40 Mg Tablet PO 40 mg HS GERALD Administration Canagliflozin 100 mg 01/03/21 06:30 01/03/21 07:30 Canagliflozin 100 Mg Tablet PO 100 mg DAILY@0630 GERALD Administration Citalopram Hydrobromide 20 mg 01/03/21 09:00 01/03/21 08:22 Citalopram Hydrobromide 20 Mg Tablet PO 20 mg QAM GERALD Administration Cyclobenzaprine HCl
[2021-01-03 11:13] LABS: Glucose Point of Care 169 (65-105)
[2021-01-03 12:12] LABS: Hematocrit 29.9 % (42.0-52.0); Hemoglobin 10.3 g/dL (14.0-18.0)
--- NOTE | 2021-01-03 13:47 | PM.DS ---
DS: Admitting Diagnosis Admitting Diagnosis Admitting Diagnosis: OA knee Right DS: Discharge Diagnosis Discharge Diagnosis (1) Status post right knee replacement: Code(s): Z96.651 - Presence of right artificial knee joint Status: Acute (2) Osteoarthritis of right knee: Code(s): M17.11 - Unilateral primary osteoarthritis, right knee Status: Acute Assessment and Plan: Patient progressing well from Total knee arthroplasty on the right. Pain controlled with oral pain medications. No complications. Did well with initial PT/OT. Follow up in office. See blue instruction sheet for details. Take Aspirin 81 mg BID for 2 weeks for DVT prophylaxis. DS: Summary Hospital Course Reason for hospitalization: Total knee arthroplasty Hospital Course: Patient tolerated procedure well. Has had initial PT/OT. Status at Discharge Functional status at discharge: uses cane/walker Overall status at discharge: patient is progressing back to baseline Time Spent with Patient Time attestation: Total time spent providing and/or coordinating discharge services: 30 min Exam Narrative: Exam Narrative: Obese Male. Resting comfortably in bed. Wearing compression socks bilaterally. Dressing intact with no drainage. Moderate swelling. Small area of ecchymosis. No erythema. No hematoma. Range of motion limited due to pain. Calf nontender. Neurologic status intact. No varicosities. Distal pulses palpable. DS: Data Data Completed and Pending Labs on day of discharge: Labs from last 24 hours 01/03/21 01/03/21 01/03/21 11:56 11:10 07:30 WBC RBC Hgb 10.3 L Hct 29.9 L MCV MCH MCHC RDW Plt Count MPV Immature Gran % (Auto) Neut % (Auto) Lymph % (Auto) [place] % (Auto) Eos % (Auto) Baso % (Auto) Lymph # (Auto) [place] # (Auto) Eos # (Auto) Baso # (Auto) Abs Immat Gran (auto) Absolute Neuts (auto) Absolute Nucleated RBC Nucleated RBC % Sodium Potassium Chloride Carbon Dioxide Anion Gap BUN Creatinine Estim Creat Clear Calc Estimated GFR Glucose POC Capillary Glucose 169 H 206 H Hemoglobin A1c Calcium Total Bilirubin Direct Bilirubin AST ALT Alkaline Phosphatase Total Protein Albumin 01/03/21 01/03/21 01/03/21 06:25 05:04 05:04 WBC 8.8 RBC 3.31 L Hgb 9.8 L D Hct 29.0 L MCV 87.6 MCH 29.6 MCHC 33.8 RDW 12.4 Plt Count 129 L MPV 9.8 Immature Gran % (Auto) 0.2 Neut % (Auto) 82.2 H Lymph % (Auto) 7.0 L [place] % (Auto) 10.2 H Eos % (Auto) 0.2 Baso % (Auto) 0.2 Lymph # (Auto) 0.61 L [place] # (Auto) 0.9 H Eos # (Auto) 0.0 Baso # (Auto) 0.0 Abs Immat Gran (auto) 0.02 Absolute Neuts (auto) 7.2 H Absolute Nucleated RBC 0.0 Nucleated RBC % 0.0 Sodium 133 L Potassium 4.1 Chloride 104 Carbon Dioxide 27 Anion Gap 2 L BUN 19 Creatinine 0.80 Estim Creat Clear Calc 106 Estimated GFR > 60 Glucose 184 H POC Capillary Glucose Hemoglobin A1c 7.3 H Calcium 9.5 Total Bilirubin 1.0 Direct Bilirubin 0.0 AST 22 ALT 19 Alkaline Phosphatase 69 Total Protein 6.0 L Albumin 3.5 01/02/21 01/02/21 20:35 16:51 WBC RBC Hgb Hct MCV MCH MCHC RDW Plt Count MPV Immature Gran % (Auto) Neut % (Auto) Lymph % (Auto) [place] % (Auto) Eos % (Auto) Baso % (Auto) Lymph # (Auto) [place] # (Auto) Eos # (Auto) Baso # (Auto) Abs Immat Gran (auto) Absolute Neuts (auto) Absolute Nucleated RBC Nucleated RBC % Sodium Potassium Chloride Carbon Dioxide Anion Gap BUN Creatinine Estim Creat Clear Calc Estimated GFR Glucose POC Capillary Glucose 232 H 255 H Hemoglobin A1c Calcium Total Bilirubin Direct Bilirubin AST ALT Alkaline Phosphatase Total Protein Albumin
== END 2021-01-03 15:08 | disposition home or self-care (01) ==
LOC: ANHSURGERY 06:02 → ANH2MED 12:44
PROVIDERS: Physician Assistant; PCP Family Medicine; Visit Provider Orthopaedic Surgery
PROC: (CPT 27447; principal; 2021-01-02 07:30)
DX: M17.11 Unilateral primary osteoarthritis, right knee (principal); G89.18 Other acute postprocedural pain; E66.01 Morbid (severe) obesity due to excess calories; Z68.38 Body mass index [BMI] 38.0-38.9, adult; E11.9 Type 2 diabetes mellitus without complications; I10 Essential (primary) hypertension; E78.5 Hyperlipidemia, unspecified; I35.0 Nonrheumatic aortic (valve) stenosis; Z79.84 Long term (current) use of oral hypoglycemic drugs; G47.30 Sleep apnea, unspecified; Z95.5 Presence of coronary angioplasty implant and graft
CPT/HCPCS: 27447; 64447; 36415; 73560; 80048; 80076; 82948; 83036; 85014; 85018; 85025; 97110; 97116; 97161; 97165; 97535; A9270; C1713; C1776; J0131; J0171; J0690; J1815; J1885; J2250; J2270; J2795; J3010; J7120

== ENCOUNTER 2021-06-26 08:43 | Outpatient (CLI) | payer MEDICARE, SELFPAY ==
[2021-06-26 10:26] LABS: Prostate Specific Antigen 1.2 ng/mL (< OR = 4.0)
== END 2021-06-26 08:44 | disposition home or self-care (01) ==
LOC: ANHLAB 08:47
PROVIDERS: PCP Family Medicine; Visit Provider Urology
DX: R97.20 Elevated prostate specific antigen [PSA] (principal)
CPT/HCPCS: 36415; 84153

== ENCOUNTER 2022-09-02 00:42 | Day surgery (SDC) | payer MEDICARE, SELFPAY ==
[2022-09-01 12:48] VITALS: BMI 37.0
--- NOTE | 2022-09-01 13:13 | SUR.PREOP ---
patient called for pre op questions. Patient states he is still waiting to hear if his insurance approved the procedure. called cardiology office and they confirmed this is true. they will call us and patient if the procedure is cancelled.
[2022-09-02] VITALS (14 sets, daily range): BP systolic 114–142; BP diastolic 62–75; PULSE 53–71; RESP 12–16; TEMP 36.2–36.4; O2SAT 96–100; BMI 38.0
[2022-09-02] MEDS: SODIUM CHLORIDE 0.9% IV 500 ML 100 ML IV CONT (08:00)
[2022-09-02 08:01] LABS: Basophils Percent Auto 0.4 % (0.2-1.2); Eosinophils Absolute Auto 0.1 K/mm3 (0-0.3); Eosinophils Percent Auto 1.3 % (0-4.4); Hematocrit 34.9 % (42.0-52.0); Hemoglobin 12.3 g/dL (14.0-18.0); Immature Granulocyte Absolute 0.02 K/mm3 (0.00-0.031); Immature Granulocyte Percent A 0.3 % (0-0.5); Lymphocytes Absolute Auto 0.75 K/mm3 (0.9-3.2); Lymphocytes Percent Auto 9.6 % (18.3-44.2); Mean Corpuscular HGB Conc 35.2 g/dl (32-36); Mean Corpuscular Hemoglobin 30.6 pg (26-34); Mean Corpuscular Volume 86.8 fl (80-100); Mean Platelet Volume 10.1 fl (7.4-10.4); Monocytes Absolute Auto 0.6 K/mm3 (0.1-0.6); Monocytes Percent Auto 7.7 % (2.6-8.5); Neutrophils Absolute Auto 6.3 K/mm3 (1.3-6.7); Neutrophils Percent Auto 80.7 % (45.5-73.1); Platelet Count Result 154 k/mm3 (150-375); Red Blood Count 4.02 M/mm3 (4.6-6.20); White Blood Count 7.8 K/mm3 (4.5-10.0)
[2022-09-02 08:06] LABS: Anion Gap 10 mmol/L (8-16); Blood Urea Nitrogen 24 mg/dL (9-20); Calcium 10.2 mg/dL (8.4-10.2); Carbon Dioxide 24 mmol/L (22-30); Chloride 104 mmol/L (98-107); Estimated CRCL calculation 92 ml/min; Estimated Glomerular Filt Rate > 60; Glucose 204 mg/dL (65-110); Potassium 4.7 mmol/L (3.4-5.0); Sodium 138 mmol/L (137-145)
--- NOTE | 2022-09-02 10:24 | WPDHPUPDATE1 ---
History and Physical Update Update Date/Time: 09/02/22 10:24 History and Physical has been reviewed, including an updated exam of the patient. There are NO changes in the patient's condition. Risks, benefits, and alternatives have been discussed and questions answered. Patient agrees to proceed with procedure.
--- NOTE | 2022-09-02 10:24 | WPDMODSED ---
Moderate Sedation Note-Pt Data Patient Data Diagnosis: Shortness of breath, abnormal stress test Present Complaint: Shortness of breath, abnormal stress test Procedure to be performed/Plan: LHC, RHC Allergies Allergy/AdvReac Type Severity Reaction Status Date / Time No Known Allergies Allergy Verified 09/02/22 08:08 Home Medications Medication Instructions Recorded Confirmed Type citalopram 20 mg tablet 20 mg PO QAM 08/30/19 09/01/22 History diclofenac sodium 75 mg 75 mg PO BID 08/30/19 09/01/22 History tablet,delayed release glimepiride 2 mg tablet 2 mg PO QAM 08/30/19 09/01/22 History lisinopril 5 mg tablet 5 mg PO DAILY 08/30/19 09/01/22 History metformin 1,000 mg tablet 1,000 mg PO BID 08/30/19 09/01/22 History trazodone 100 mg tablet 100 mg PO HS 08/30/19 09/01/22 History canagliflozin 100 mg tablet 100 mg PO QAM 12/11/19 09/01/22 History (Invokana) atorvastatin 40 mg tablet 40 mg PO HS 09/11/20 09/01/22 History aspirin 81 mg tablet,delayed 81 mg PO DAILY 03/30/22 09/01/22 History release finasteride 5 mg tablet 5 mg PO DAILY 09/01/22 09/01/22 History hydrocodone 5 mg-acetaminophen 325 1 tablet PO PRN 09/01/22 09/01/22 History mg tablet Current Medications: Active Medications Sodium Chloride (Normal Saline Iv) 500 mls @ 100 mls/hr IV CONT .Q5H GERALD Last Admin: 09/02/22 08:00 Dose: 100 mls/hr Sedation/Anesthesia: No previous sedation/anesthesia problems (including family history). [facility] Past Medical History Medical History Aortic stenosis History of left shoulder fracture Hyperlipidemia Hypertension Obstructive sleep apnea Osteoarthritis of left knee Osteoarthritis of right knee Type 2 diabetes mellitus Surgical History Surgical History History of arthroplasty of left knee (~12/26/19) History of cardiac catheterization Reports clear coronary arteries. History of carpal tunnel release History of nasal surgery History of penile implant History of tonsillectomy History of total right hip arthroplasty History of total right knee replacement (~01/02/21) History of vasectomy Family History Family History Other Diabetes mellitus Family history of arthritis Family history of congenital heart disease Family history of lung cancer Social History Social History Social History: Surrogate decision maker: Afshan, . Code status: Full code. Smoking status: Never smoker Alcohol intake: never Alcohol use details: Rare alcohol use, perhaps 1 to 2 drinks a year. Substance use: never Additional occupation/education comments: Owns a heating and cooling business. Gender identity (if verbalized by the patient): Male Spiritual care concerns: No Mod Sed Physical Exam Physical Exam Pre Procedural Exam: Normal: Appearance, Lungs, Heart Rate, Heart Rhythm, Neuro Exam, Abdomen, Extremities and Skin Hours since solid foods: 10 Hours since liquid intake: 8 Mallampati Classification: class III Internal Medicine - PN: Obj Da Vital Signs Vital Signs: Vital Signs - 24 hr 09/02/22 07:44 Temperature 36.4 C Pulse Rate 62 Respiratory Rate 12 Blood Pressure 132/68 Pulse Oximetry 99 Oxygen Delivery Room Air Meds/Results Medications: Active Medications Generic Name Dose Route Start Last Admin Trade Name Freq PRN Reason Stop Dose Admin Sodium Chloride 500 mls @ 100 mls/hr 09/02/22 07:00 09/02/22 08:00 Normal Saline Iv IV CONT 100 mls/hr .Q5H GERALD Administration Labs CBC & Chem 7: 09/02/22 07:33 09/02/22 07:33 Labs: Laboratory Results - last 24 hr 09/02/22 09/02/22 07:33 07:33 WBC 7.8 RBC 4.02 L Hgb 12.3 L Hct 34.9 L MCV 86.8 MCH 30.6 MCHC 35.2 RDW 13.0 Plt Count 154 MP
--- NOTE | 2022-09-02 10:26 | WPDCARDPROC ---
Cardiac Cath Procedure Note Date of procedure:: 09/02/22 Performing physician:: CATHETERIZATION LABORATORY REPORT Procedure Date: 09/02/2022 Amplifier Mechanic: Kellie Ndiaye M.D., [facility]? Referring Physician: Dr. Carl? Anesthesia: Versed and Fentanyl were ordered and given in my presence at 09:20, procedure ended at 10:20. Supervision of nurse monitored moderate sedation with Versed and Fentanyl was provided for 60 minutes. Total of Versed 2mg and Fentanyl 75mcg were administered by the geophysical laboratory director RN. Pre-op Diagnosis: Shortness of breath, abnormal stress test Post-op Diagnosis: Non-obstructive coronary arteries Normal right and left heart filling pressures No pulmonary hypertension Normal cardiac output and cardiac index by Norris Procedure(s): Left heart catheterization with coronary angiography Right heart cath Access Site: Right radial artery Right femoral vein Brief History and Clinical Indications: Patient is a 67-year-old male with a history of hypertension, hyperlipidemia, diabetes, obesity, and sleep apnea who has been having shortness of breath, underwent stress test which was concerning for ischemia. Therefore, patient referred for LHC and RHC. All risks, benefits and alternatives to left heart catheterization with or without percutaneous coronary intervention was discussed at length with the patient. Risk of complications including but not limited to bleeding, infection, arrhythmia, stroke, worsening kidney function, blood loss, groin hematoma, limb loss, emergency coronary artery bypass grafting, and even were discussed with the patient and all questions were answered. The patient understood and wished to proceed. Time out called, patient name, date of , medical record number, allergies, procedure performed, identify Amplifier Mechanic, patient and staff member concurred with accurate data, procedure carried on. Findings: LEFT HEART CATHETERIZATION FINDINGS: 1. Left main: Large caliber vessel. The left main coronary artery is widely patent without any significant obstructive disease. The left main trifurcates into the LAD, LCX, and Ramus. 2. Left anterior descending: Large caliber vessel. The LAD has mild luminal irregularities without any significant obstructive angiographic disease. The first diagonal vessel is a large caliber vessel with an ostial 20% stenosis; rest of the vessel has mild luminal irregularities without any significant obstructive angiographic disease. The LAD wraps the apex. 3. Ramus: Medium caliber vessel with mild luminal irregularities. 4. Left circumflex: Large caliber vessel. The left circumflex is a co-dominant vessel. The left circumflex artery and the main marginal branches have mild luminal irregularities without any significant obstructive angiographic disease. 5. Right coronary artery: Large caliber vessel. The RCA is a co-dominant vessel. The proximal RCA has a mild 20% stenosis. The mid RCA has mild luminal irregularities. The distal RCA has mild diffuse disease. The RPDA has mild luminal irregularities. The RPLV bifurcates into two branches. The upper branch has mild proximal 10-20% disease; remainder of branch has mild luminal irregularities. The lower branch has mild luminal irregularities. 6. Left ventricle: A. End-diastolic pressure 17 mmHg. B. LV gram deferred. C. No significant gradient across aortic valve on catheter pullback. RIGHT HEART CATHETERIZATION FINDINGS: Pressures (mmHg): RA: 6 RV: 31/9 PA: 31/11 with mean of 19mmHg PCWP: 9 Saturations (%): PA: 71.6% Arterial: 95.6% CO/CI: Norris CO: 7.5 Norris CI: 3.1 PVR (RUSSO): 1.5 Description of Procedure: Informed consent signed and placed in the chart. Patient transferred to geophysical laboratory director room. Prepped and draped in usual sterile fashion. 2% lidocaine injected subcutaneously in right groin area. Right femoral vein was accessed using micropuncture technique. 7-FR sheath placed. 7F [place]-Amy catheter
[2022-09-02 11:29] LABS: Activated Clotting Time 155 SEC (74-137)
== END 2022-09-02 16:30 | disposition home or self-care (01) ==
PROVIDERS: PCP Family Medicine; Visit Provider Internal Medicine
PROC: 4A023N8 Measurement of Cardiac Sampling and Pressure, Bilateral, Percutaneous Approach (ICD-10-PCS; CPT 93453; principal; 2022-09-02 08:30)
DX: I25.10 Atherosclerotic heart disease of native coronary artery without angina pectoris (principal); I65.23 Occlusion and stenosis of bilateral carotid arteries; Z79.82 Long term (current) use of aspirin; Z79.51 Long term (current) use of inhaled steroids; I10 Essential (primary) hypertension; E78.5 Hyperlipidemia, unspecified; G47.33 Obstructive sleep apnea (adult) (pediatric); M19.90 Unspecified osteoarthritis, unspecified site; E11.9 Type 2 diabetes mellitus without complications
CPT/HCPCS: 36415; 80048; 85025; 93460; A9270; C1769; C1887; C1894; J1644; J2250; J3010; J7040

== ENCOUNTER 2022-10-28 07:44 | Outpatient (CLI) | payer MEDICARE, SELFPAY ==
--- NOTE | ~2022-10-28 | CT_ITS ---
EXAMINATION: CT diagnostic chest wo con DATE: 10/28/2022 08:11 INDICATION: Dyspnea on exertion. Exposure to asbestos 30+ years ago TECHNIQUE: Computed tomography (CT) of the chest was performed without intravenous contrast. Automate d exposure control and iterative reconstruction technique were employed. Exam dose: 544.42 mGy-cm to katie exam DLP. COMPARISON: None FINDINGS: There is thyromegaly, particularly on the left, suggesting goiter and/or thyroid mass lesio n(s). Consider thyroid ultrasound examination. No hilar or mediastinal mass lesion or lymphadenopathy is detected. No thoracic aortic aneurysm. Norm al heart size. No pericardial or pleural effusion. There are couple of small nodular densities along the minor fissure, likely benign fissural nodes. Superior segment right lower lobe prominent calcified pulmonary granuloma, benign. Small calcified ri ght hilar and subcarinal nodes. Mild discoid atelectasis or scarring, anterior basilar left lower lobe. No pulmonary infiltrate or consolidation or suspicious pulmonary mass lesion is detected. No pleural thickening or calcified pleural plaques are detected. Included portions of the adrenal glands are unremarkable. Small sliding hiatal hernia. Diffuse idiopathic skeletal hyperostosis of the cervical and thoracolumbar spine IMPRESSION: Thyroid enlargement, consistent with goiter and/or thyroid mass or masses; consider thyr oid ultrasound examination Old pulmonary granulomatous disease No pleural thickening or calcified pleural plaques or basilar pulmonary interstitial fibrosis to sugg est asbestosis Small sliding hiatal hernia Reviewed, dictated and finalized at Location A. Reviewed, dictated and finalized at location B. GATING OFFICER IMPRESSION: Thyroid enlargement, consistent with goiter and/or thyroid mass or masses; consider thyroid ultrasound examination Old pulmonary granulomatous disease No pleural thickening or calcified pleural plaques or basilar pulmonary interst itial fibrosis to suggest asbestosis Small sliding hiatal hernia
--- NOTE | 2022-10-29 16:33 | WPDPFTINT ---
PFT Procedure Performed PFT Procedure Performed Spirometry with Pre/Post Bronchodilator Plethysmography (Lung Vol) Diffusing Cap (DLCO) Flow Vol Loop PFT Interpretation Lung volumes were measured with the body plethysmography method. The diminished expiratory reserve volume is related to obesity. The remaining lung volumes are unremarkable. Spirometry showed normal expiratory flow rates and a normal FEV1 to FVC ratio of 82%. Following administration of a bronchodilator there was no significant increase in expiratory flow rates. Lung diffusion capacity is within the normal range at 91% predicted. The flow volume loop is unremarkable. Impression: Spirometry, lung volumes, and lung diffusion capacity all within the normal range.
--- NOTE | 2022-10-29 16:35 | WPDSIXMINUTE ---
Six Minute Walk Procedure Procedure Performed Pulmonary Stress Test (6 min walk) Six Minute Walk Six Minute Walk: This 6 minute walk test was carried out with the patient breathing ambient air. The pre walk oxyhemoglobin saturation was 98%. The patient walked over 365 m with no stops during testing. During the walk the oxyhemoglobin saturation remained 93% or higher. The perceived dyspnea on the Chen scale at baseline was 1 and increased to 4 at the end of testing. Impression: No evidence of oxyhemoglobin desaturation on this testing.
== END 2022-10-28 07:45 | disposition home or self-care (01) ==
PROVIDERS: PCP Family Medicine; Visit Provider Physician Assistant
DX: R06.09 Other forms of dyspnea (principal); Z57.39 Occupational exposure to other air contaminants; E04.9 Nontoxic goiter, unspecified; D71 Functional disorders of polymorphonuclear neutrophils; K44.9 Diaphragmatic hernia without obstruction or gangrene
CPT/HCPCS: 71250; 94060; 94618; 94726; 94729

== ENCOUNTER 2022-11-17 08:11 | Outpatient (CLI) | payer MEDICARE, SELFPAY ==
--- NOTE | 2022-12-09 11:53 | WPDSLEEPSTUD ---
Sleep Study Date of Study: 11/17/22 Ordering Provider: MICHI Blanco Interpreting Physician: Brandee Garcia MD Sleep Study Type: Split Polysomnogram Height: 1.8 m Weight: 125.191 kg Body Mass Index: 38.5 Neck Circumference (inches): 20 [place]: 10 Reason for Sleep Study Hypersomnolence History of obstructive sleep apnea use CPAP at 1998 Sleep History Emerson Martinez is a 67-year-old male With complaints of waking up during the night and having excessive daytime sleepiness. At night he has difficulty with runny sinuses, difficulty swallowing at night with a productive cough, and shortness of breath. He has daytime fatigue. He does not awaken from sleep feeling short of breath. He occasionally awakens with heartburn, belching or coughing. He frequently snores loudly enough that it bothers other people. He occasionally has trouble sleeping with a cold. He does not wake up gasping for breath at night. He frequently has breathing problems at night reported to him by others. He rarely sweats excessively at night. He does not notice his heart pounding or beating irregularly at night. He frequently falls asleep during the day, occasionally falls asleep involuntarily but never falls asleep while driving. He does not have loss of muscle tone with strong emotion. He occasionally has daytime difficulties due to excessive sleepiness. He rarely feels paralyzed on waking or falling asleep. He does not have dreamlike scenes on waking or falling asleep. He does not feel afraid to go to sleep. He rarely has nightmares. He occasionally remembers his dreams. He constantly has racing thoughts. He occasionally feels sad or depressed. He occasionally has anxiety. He frequently has muscular tension. He does not notice parts of his body jerking. He rarely kicks at night. He frequently has crawling and aching feelings in his legs. He frequently has leg pain at night. He does not have morning jaw pain and does not grind his teeth during sleep. He frequently is bothered by pain during the day, frequently awakened by pain at night. He always wakes feeling stiff in the morning with sore achy muscles and pain in the neck and spine. He has fatigue, sexual problems, memory problems, and concentration difficulties. Normal bedtime is 9:00 p.m. falling asleep within 5 minutes typically waking 3-4 times during the night. He may go downstairs and sleep in the recliner. He wakes the morning between 5 and 6:00 a.m.. His weekend schedule is the same. He estimates getting only 4-5 hours of sleep at night. He takes naps in the afternoon or evening. A short nap lasting 10 or 15 minutes may be refreshing. He is usually tired in the morning. He feels better in the morning compared to other times of day. Habits: Never smoked tobacco. Caffeine: 64 oz to 120 oz a day of diet [employer]. No alcohol. No recreational drugs. [facility] Past Medical History Medical History (Updated 10/19/22 @ 11:25 by Lorelei Anthony PA-C) Aortic stenosis History of left shoulder fracture Hyperlipidemia Hypertension Obstructive sleep apnea Obstructive sleep apnea Osteoarthritis of left knee Osteoarthritis of right knee Type 2 diabetes mellitus Surgical History Surgical History History of arthroplasty of left knee (~12/26/19) History of cardiac catheterization Reports clear coronary arteries. History of carpal tunnel release History of nasal surgery History of penile implant History of tonsillectomy History of total right hip arthroplasty History of total right knee replacement (~01/02/21) History of vasectomy Family History Family History Other Diabetes mellitus Family history of arthritis Family history of congenital heart disease Family history of lung cancer Social History Social History (Reviewed 10/19/22 @ 08:38 by
[2022-12-09 12:40] VITALS: BMI 38.5
--- NOTE | 2023-12-16 14:26 | SLEEP ---
PT STATES HE STOPPED USAGE OF CPAP MACHINE. HE HAD A CONVERSATION WITH HELDER BROWN PA-C SHE IS TO REEVALUATE AHI FOR FURTHER TX WITH CPAP MACHINE
== END 2022-11-18 07:00 | disposition home or self-care (01) ==
LOC: ANHCSM 08:14
PROVIDERS: PCP Family Medicine; Visit Provider Physician Assistant
DX: G47.33 Obstructive sleep apnea (adult) (pediatric) (principal); E78.5 Hyperlipidemia, unspecified; I10 Essential (primary) hypertension; E11.9 Type 2 diabetes mellitus without complications
CPT/HCPCS: 95811

== ENCOUNTER 2024-02-23 12:53 | Outpatient (CLI) | payer MEDICARE, SELFPAY ==
--- NOTE | ~2024-02-23 | US_ITS ---
EXAMINATION: US carotid duplex BI DATE: 02/23/2024 13:51 INDICATION: Dizziness TECHNIQUE: Grayscale, color Doppler, and pulsed Doppler images of the cervical carotid arteries were obtained. The degree of vessel stenosis is placed in one of the following categories: normal, <50%, 5 0-69%, >=70% but less than near-occlusion, near-occlusion, or total occlusion. Note that percent sten osis relative to normal distal artery lumen diameter is indirectly measured from velocity measurement s as described by Favian, et al. Radiology 2003; 229:340-346. Notes: Normal: Peak systolic velocity <125 centimeters/sec and no plaque <50%. Peak systolic velocity <125 ( EDV <40; ICA/CCA PSV ratio <2.0; used these factors only a tandem lesions or low cardiac output or co ntralateral disease) 50-69 %: PSV 125-230 (EDV 40-100; ratio 2-4) >= 70% but less than near occlusion: PSV greater than 230 (EDV > 100; ratio> 4.0) Near Occlusion: PSV that is variable; markedly narrowed lumen Occlusion: Absent flow on color/spectral Doppler and no lumen on canela scale. COMPARISON: None. FINDINGS: RIGHT: The right common carotid artery (CCA) peak systolic velocity (PSV) is 78 cm/s. The right internal car otid artery (ICA) PSV is 84 cm/s. The right ICA end-diastolic velocity (EDV) is 19 cm/s. The right IC A/CCA PSV ratio is 1.. The external carotid artery (ECA) PSV is 95 cm/s. There is antegrade flow in t he right vertebral artery. LEFT: The left CCA PSV is 85 cm/s. The left ICA PSV is 60 cm/s. The left ICA EDV is 12 cm/s. The left ICA/C CA PSV ratio is 0.7. The ECA PSV is 87 cm/s. There is antegrade flow in the left vertebral artery. IMPRESSION: 1. Less than 50% stenosis in the right internal carotid artery by sonographic criteria. 2. Less than 50% stenosis in the left internal carotid artery by sonographic criteria. Reviewed, dictated and finalized at location B. IMPRESSION: 1. Less than 50% stenosis in the right internal carotid artery by sonographic albert [place]. 2. Less than 50% stenosis in the left internal carotid artery by sonographic hector mendoza.
== END 2024-02-23 12:54 | disposition home or self-care (01) ==
PROVIDERS: PCP Family Medicine; Visit Provider Internal Medicine Cardiovascular Disease
DX: I65.23 Occlusion and stenosis of bilateral carotid arteries (principal)
CPT/HCPCS: 93880

== ENCOUNTER 2024-07-21 09:57 | Emergency (ER) | payer MEDICARE, SELFPAY ==
--- NOTE | ~2024-07-21 | XR_ITS ---
EXAMINATION: XR hand LT min 3V DATE: 07/21/2024 12:04 INDICATION: Left hand injury with medial sided swelling TECHNIQUE: Posteroanterior, oblique and lateral views of the left hand were obtained. COMPARISON: None. FINDINGS: Bone alignment is normal. No acute fracture. Chronic nonunited ulnar styloid avulsion fracture. There is an additional small heterotopic ossicle at the radial side of the triangular fiber cartilage comp yuliana. Polyarticular osteoarthritis of the left hand and wrist, severe at the first carpometacarpal, se cond and third proximal and second-fifth distal interphalangeal joints, moderate severity at the serjio ining interphalangeal joints, the first-third metacarpophalangeal joints and at the triscaphe joint a nd mild at the remaining joints in the hand and wrist. Diffuse soft tissue swelling about the hand. IMPRESSION: 1. Severe polyarticular osteoarthritis. No acute osseous adenopathy. 2. Chronic nonunited ulnar styloid avulsion fracture distal heterotopic ossification at the triangula r fibrocartilage complex, also likely sequela of old trauma. Reviewed, dictated and finalized at location A. IMPRESSION: 1. Severe polyarticular osteoarthritis. No acute osseous adenopathy. 2. Chronic nonunited ulnar styloid avulsion fracture distal heterotopic ossific ation at the triangular fibrocartilage complex, also likely sequela of old trau ma.
[2024-07-21 10:08] VITALS: BP 147/71; PULSE 62; RESP 12; TEMP 36.4; O2SAT 98
[2024-07-21 11:28] VITALS: BP 127/63; PULSE 59; RESP 16; O2SAT 98
[2024-07-21] MEDS: TETANUS,DIPHTHERIA,AC PERTUSSIS ADULT (0.5 ML) BOOSTRIX IM (12:26)
--- NOTE | 2024-07-21 12:53 | ED.GENADULT ---
HPI - General Adult General Chief complaint: Extremity Injury, Upper Stated complaint: left hand pain Time Seen by Provider: 07/21/24 12:01 History of Present Illness HPI narrative: Patient is a 68-year-old male who presents ER with left hand pain and swelling. He injured it with a power tool 5 days ago. He has developed redness and swelling. He has known arthritis. No fevers chills or sweats. No numbness or tingling in the hand. He can only partially flex his fingers due to pain in midportion of his hand but can fully extend his fingers. There is a 1 cm wide skin wound without purulence drainage. Related Data Home Medications Medication Instructions Recorded Confirmed cetirizine 10 mg tablet (Allergy 10 mg PO DAILY PRN 02/05/23 01/26/24 Relief (cetirizine)) sennosides 8.6 mg capsule (senna) 8.6 mg PO DAILY 02/05/23 01/26/24 glimepiride 4 mg tablet 4 mg PO DAILY 05/17/24 Allergies Allergy/AdvReac Type Severity Reaction Status Date / Time No Known Allergies Allergy Verified 07/21/24 11:30 Review of Systems Review of Systems: All systems reviewed & are unremarkable except as noted in HPI and below Constitutional: Constitutional: Reports no additional constitutional complaints Musculoskeletal: Musculoskeletal: Denies back pain, Reports arthralgias, Reports joint swelling and Denies muscle cramps Integumentary/Breasts: Skin/Breast: Reports erythema, Denies rash and Reports skin ulcer PMFSH Past Medical History Medical History Allergic rhinitis Aortic stenosis Benign prostatic hyperplasia with lower urinary tract symptoms Chronic kidney disease, stage 2 (mild) Hyperlipidemia Hypertensive chronic kidney disease with stage 1 through stage 4 chronic kidney disease, or unspecified chronic kidney disease Major depressive disorder, recurrent, in full remission Obstructive sleep apnea Osteoarthritis Type 2 diabetes mellitus with diabetic chronic kidney disease Surgical History Surgical History History of arthroplasty of left knee (~12/26/19) History of arthroscopy of left knee History of cardiac catheterization X3 History of carpal tunnel release History of nasal surgery septal repair History of penile implant 1997 and 1999 History of repair of left rotator cuff History of surgery on left wrist ORIF History of tonsillectomy History of total right hip arthroplasty 10/26/2017 History of total right knee replacement (~01/02/21) Family History Family History Other Diabetes mellitus Family history of arthritis Family history of congenital heart disease Family history of lung cancer Social History Social History (Updated 01/26/24 @ 14:55 by Mishel Hernandez [facility]) Social History: Surrogate decision maker: Afshan, . Code status: Full code. Smoking status: Never smoker Alcohol intake: never Alcohol use details: Rare alcohol use, perhaps 1 to 2 drinks a year. Substance use: never Do You Feel Safe in your Home?: Yes Lack of Transportation: No Lack of Food: Never True Current Housing: I Have Housing Concerned About Future Housing: No Difficulty Paying Gas/Electric Bills: No Difficulty Paying for Meds: No Currently Unemployed: No Education: High School Diploma/GED Difficulty w/ Childcare or Family Care: No Living arrangements: with family Occupation/Education: occupation Additional occupation/education comments: Owns a heating and cooling business. Gender identity (if verbalized by the patient): Male Spiritual care concerns: No Exam Narrative: GENERAL: Well-appearing, well-nourished, and in no acute distress. HEAD: Normocephalic, atraumatic. ENT: Mucous membranes moist. HEART: Regular rate and rhythm. . Normal peripheral pulses. EXTREMITIES: Left hand with difficulty with flexion a
== END 2024-07-21 13:35 | disposition home or self-care (01) ==
PROVIDERS: Emergency Provider Emergency Medicine; PCP Family Medicine
DX: L03.114 Cellulitis of left upper limb (principal); M19.042 Primary osteoarthritis, left hand; I12.9 Hypertensive chronic kidney disease with stage 1 through stage 4 chronic kidney disease, or unspecified chronic kidney disease; E11.22 Type 2 diabetes mellitus with diabetic chronic kidney disease; N18.2 Chronic kidney disease, stage 2 (mild); Z23 Encounter for immunization
CPT/HCPCS: 73130; 90471; 90715; 99283